=== PATIENT | male | born 1965 | race Caucasian/White ===

== ENCOUNTER 2016-08-29 02:09 | Inpatient (IN) | payer OTHER ==
[~2016-08-29] VITALS: Ht 182.9 cm; Wt 131.2 kg
[~2016-08-29 02:09] MED LIST: CATAPRES-TTS 31 EACH TD; HYDRALAZINE HCL25 MG PO; HYDROCHLOROTHIA25 MG PO; LOSARTAN POTASS50 MG PO; METOPROLOL SUC100 MG PO; NORVASC10 MG PO; PRILOSEC20 MG PO; RANITIDINE HCL150 M1 PO; TRAMADOL HCL50 MG PO; ZESTRIL,PRINIVI40 MG PO; [UNRECOGNIZED DRUG - OTHER] IM
[2016-08-29 03:51] LABS: BASOPHIL COUNT 0.1 K/uL (0-0.1); EOSINOPHIL (%) 0 % (0-5); IMMATURE GRANULOCYTE (%) 1.7 % (0.0-0.7); IMMATURE GRANULOCYTE COUNT 0.6 K/uL; INSTRUMENT ABS NEUTROPHIL CT 29.7 K/uL; LYMPHOCYTE COUNT 1.2 K/uL (1.0-2.8); MEAN PLAT.VOLUME 11.1 uM^3 (9.0-12.4); MONOCYTE (%) 5.2 % (3-12); MONOCYTE COUNT 1.7 K/uL (0-0.8); NEUTROPHIL (%) 89.3 % (45-76); NEUTROPHIL COUNT 29.7 K/uL (1.8-6.4); PLATELET COUNT 232 K/uL (156-360)
[2016-08-29 04:03] LABS: CHLORIDE 101 mEq/L (99-109); POTASSIUM 3.4 mEq/L (3.7-5.4); SODIUM 137 mEq/L (136-147)
[2016-08-29 04:06] LABS: ANION GAP 13 MEQ/L (2-14)
[2016-08-29 04:08] LABS: GFR ESTIMATE (CALCULATED) 30 mL/min/
[2016-08-29 04:09] LABS: GLUCOSE 112 mg/dL (70-99); UREA NITROGEN (BUN) 25 mg/dL (9-23)
[2016-08-29 04:10] LABS: HEMATOCRIT 44.6 % (38.0-50.0); MCH 28.1 PG (29.0-34.0); MCHC 33.9 G/DL (30.0-36.0); MCV 82.9 FL (86-99); RBC DIS.WIDTH-CV 13.9 % (11.8-14.6); RBC DIS.WIDTH-SD 42.2 % (39-53); RED BLOOD COUNT 5.38 M/uL (4.00-5.50); WHITE BLOOD COUNT 33.5 K/uL (4.1-10.2)
[2016-08-29 04:12] LABS: TROP-I INTERPRETATION NEGATIVE; TROPONIN-I 0.07 ng/mL (0.0-0.30)
[2016-08-29 06:12] LABS: POINT-OF-CARE METER ID UU14100415
[2016-08-29] MEDS ORDERED: LISINOPRIL40 MG PO (09:35)
[2016-08-29] MEDS ORDERED: HYDROCODON-ACE1 EAC7 PO (09:36)
[2016-08-29] MEDS ORDERED: FERROUS SULFAT325 MG PO (09:37)
[2016-08-29] MEDS ORDERED: CYCLOBENZAPRINE10 MG PO (09:38)
[2016-08-29] MEDS ORDERED: TRULICITY1.5 MG/0.5 SC (09:39)
[2016-08-29] MEDS ORDERED: PANTOPRAZOLE SO40 MG PO (09:39)
[2016-08-29] MEDS ORDERED: VITAMIN D31000 UNIT PO (09:40)
[2016-08-29 12:19] VITALS: BP 119/69
[2016-08-29 15:29] VITALS: BP 102/50
[2016-08-29 19:46] VITALS: BP 122/68
[2016-08-29 23:22] VITALS: BP 105/59
[2016-08-30 04:08] VITALS: BP 112/63
[2016-08-30 05:38] LABS: ANION GAP 8 MEQ/L (2-14); CHLORIDE 108 MEQ/L (99-109); GFR ESTIMATE (CALCULATED) 40 mL/min/; GLUCOSE 94 mg/dL (70-99); POTASSIUM 3.4 MEQ/L (3.7-5.4); SAMPLE HEMOLYSIS CHECK 0; SAMPLE ICTERIC CHECK 0; SAMPLE LIPEMIA CHECK 0; SODIUM 141 MEQ/L (136-147); UREA NITROGEN (BUN) 27 mg/dL (9-23)
[2016-08-30 05:46] LABS: HEMATOCRIT 38.1 % (38.0-50.0); MCH 27.5 PG (29.0-34.0); MCHC 33.1 G/DL (30.0-36.0); MEAN PLAT.VOLUME 11.6 uM^3 (9.0-12.4); PLATELET COUNT 188 K/uL (156-360); RBC DIS.WIDTH-CV 14.5 % (11.8-14.6); RBC DIS.WIDTH-SD 44.1 % (39-53); RED BLOOD COUNT 4.59 M/uL (4.00-5.50); WHITE BLOOD COUNT 25.9 K/uL (4.1-10.2)
[2016-08-30 08:01] VITALS: BP 122/70
[2016-08-30 11:25] VITALS: BP 131/72
[2016-08-30 15:26] VITALS: BP 143/73
[2016-08-30 19:52] VITALS: BP 138/69
[2016-08-30 23:53] VITALS: BP 175/82
[2016-08-31 03:47] VITALS: BP 106/58
[2016-08-31 07:49] VITALS: BP 123/77
[2016-08-31 10:11] LABS: ANION GAP 10 MEQ/L (2-14); CHLORIDE 108 MEQ/L (99-109); GFR ESTIMATE (CALCULATED) 56 mL/min/; GLUCOSE 100 mg/dL (70-99); POTASSIUM 3.4 MEQ/L (3.7-5.4); SAMPLE HEMOLYSIS CHECK 0; SAMPLE ICTERIC CHECK 0; SAMPLE LIPEMIA CHECK 0; SODIUM 141 MEQ/L (136-147); UREA NITROGEN (BUN) 27 mg/dL (9-23)
[2016-08-31] MEDS ORDERED: AMOXICILLIN875 MG PO (11:01)
[2016-08-31] MEDS ORDERED: PROAIR HFA8.5 GM IH (11:02)
[2016-08-31 11:35] VITALS: BP 155/83
== END 2016-08-31 14:51 | disposition home or self-care (01) | DRG 194 ==
LOC: EME → EDSEX 02:09 → EDBD 02:09 → EME 02:09 → EDOF 06:24 → 3EAST 12:09
PROVIDERS: Emergency Medicine; Family Medicine
DX: J13 Pneumonia due to Streptococcus pneumoniae (principal); R78.81 Bacteremia; N17.9 Acute kidney failure, unspecified; E11.21 Type 2 diabetes mellitus with diabetic nephropathy; E11.22 Type 2 diabetes mellitus with diabetic chronic kidney disease; I12.9 Hypertensive chronic kidney disease with stage 1 through stage 4 chronic kidney disease, or unspecified chronic kidney disease; N18.3 Chronic kidney disease, stage 3 (moderate); K92.2 Gastrointestinal hemorrhage, unspecified; J45.909 Unspecified asthma, uncomplicated; D50.0 Iron deficiency anemia secondary to blood loss (chronic); I95.9 Hypotension, unspecified; Z91.19 Patient's noncompliance with other medical treatment and regimen; K21.9 Gastro-esophageal reflux disease without esophagitis; E55.9 Vitamin D deficiency, unspecified; G89.29 Other chronic pain; M54.9 Dorsalgia, unspecified; F17.200 Nicotine dependence, unspecified, uncomplicated; E66.9 Obesity, unspecified; Z68.39 Body mass index [BMI] 39.0-39.9, adult
CPT/HCPCS: 36415; 71010; 80048; 80053; 80061; 82043; 82570; 82728; 82948; 83036; 83540; 83605; 83690; 83970; 84484; 85025; 85027; 87040; 87077; 87181; 87801; 90732; 93005; 94640; 99202; 99281; 99285; G0009; J0456; J0696; J1956; J7030; J7050; J7512

== ENCOUNTER 2017-03-28 15:25 | Emergency (ER) | payer OTHER ==
[~2017-03-28] VITALS: Ht 182.9 cm; Wt 129.2 kg
[~2017-03-28 15:25] MED LIST changes: +AMOXICILLIN875 MG PO; +CYCLOBENZAPRINE10 MG PO; +FERROUS SULFAT325 MG PO; +HYDROCODON-ACE1 EAC7 PO; +LISINOPRIL40 MG PO; +PANTOPRAZOLE SO40 MG PO; +PROAIR HFA8.5 GM IH; +TRULICITY1.5 MG/0.5 SC; +VITAMIN D31000 UNIT PO
[2017-03-28] MEDS ORDERED: LISINOPRIL20 MG PO (15:48)
[2017-03-28 17:21] LABS: HEMATOCRIT 43.9 % (38.0-50.0); MCHC 34.6 G/DL (30.0-36.0); MCV 86.6 FL (86-99); MEAN PLAT.VOLUME 10.6 uM^3 (9.0-12.4); PLATELET COUNT 268 K/uL (156-360); RBC DIS.WIDTH-CV 13.4 % (11.8-14.6); RBC DIS.WIDTH-SD 42.2 % (39-53); RED BLOOD COUNT 5.07 M/uL (4.00-5.50); WHITE BLOOD COUNT 9.9 K/uL (4.1-10.2)
[2017-03-28 17:29] LABS: CHLORIDE 105 mEq/L (99-109); POTASSIUM 3.4 mEq/L (3.7-5.4); SODIUM 142 mEq/L (136-147)
[2017-03-28 17:31] LABS: GLUCOSE 104 mg/dL (70-99)
[2017-03-28 17:33] LABS: ANION GAP 13 MEQ/L (2-14)
[2017-03-28 17:35] LABS: GFR ESTIMATE (CALCULATED) 42 mL/min/
[2017-03-28 17:36] LABS: UREA NITROGEN (BUN) 26 mg/dL (9-23)
[2017-03-28 19:25] VITALS: BP 198/99
== END 2017-03-28 19:30 | disposition home or self-care (01) ==
LOC: EME 15:25
PROVIDERS: Physician Assistant Medical
DX: R51 Headache (principal); I10 Essential (primary) hypertension; J45.909 Unspecified asthma, uncomplicated; E11.9 Type 2 diabetes mellitus without complications; G43.909 Migraine, unspecified, not intractable, without status migrainosus; K21.9 Gastro-esophageal reflux disease without esophagitis; N18.9 Chronic kidney disease, unspecified; F17.200 Nicotine dependence, unspecified, uncomplicated; Z88.2 Allergy status to sulfonamides; Z88.6 Allergy status to analgesic agent
CPT/HCPCS: 70450; 80048; 85027; 99281; 99284; J1885

== ENCOUNTER 2017-04-03 16:23 | Emergency (ER) | payer OTHER ==
[~2017-04-03] VITALS: Ht 182.9 cm; Wt 135.0 kg
[~2017-04-03 16:23] MED LIST changes: +LISINOPRIL20 MG PO
[2017-04-03 16:44] VITALS: BP 181/87
[2017-04-03] MEDS ORDERED: FIORICET 50-301 EAC1 PO (19:27)
== END 2017-04-03 19:43 | disposition home or self-care (01) ==
LOC: EME 16:23
DX: R51 Headache (principal); J45.909 Unspecified asthma, uncomplicated; K21.9 Gastro-esophageal reflux disease without esophagitis; E11.9 Type 2 diabetes mellitus without complications; I10 Essential (primary) hypertension; F17.200 Nicotine dependence, unspecified, uncomplicated; Z88.2 Allergy status to sulfonamides; Z88.8 Allergy status to other drugs, medicaments and biological substances; Z85.9 Personal history of malignant neoplasm, unspecified
CPT/HCPCS: 99281; 99283